=== PATIENT | male | born 1945 | race Caucasian/White ===

== ENCOUNTER 2016-06-03 15:56 | Inpatient (IN) | payer MEDICARE, OTHER ==
--- NOTE | ~2016-06-03 | MR17 ---
[facility] A Service of [facility] RADIOLOGY TEXT RESULTS PATIENT: MITCHELL ORTEGA LOCATION: [facility] : 45 UNIT #: [id number] AGE: [address]: Stephon Toney MD SEX: M ORDER DR: [id number] [facility] [address] [place], [place] [address] [id number] I MR#: [id number] Acc #: [id number] NAME: MITCHELL ORTEGA : 1945 SEX: M STUDY DATE/TIME: 06/07/2016 22:47 UNIT: C5B ROOM: [facility] STUDY DESCRIPTION: MR Brain WWo Contrast Attending Physician: Stephon Toney M.D. Ordering Physician: Nick Harley M.D. Primary Care Physician: Primary Care Physician No MRI CENTER REPORT This report is preliminary unless electronic signature is present. EXAM Brain MR with and without contrast 06/07/[address] 06/06/2016. HISTORY Dizziness after closed head injury 3 days ago with persistent head and neck pain and visual disturbance. PROCEDURE Routine brain MR with and without contrast. FINDINGS The study is motion degraded which limits sensitivity and limits ability to evaluate the suspected left anterior cranial fossa/nasal encephalocele. There is no MR evidence of acute ischemia or other restricted diffusion. There is no intracranial hemorrhage, hydrocephalus or extraaxial fluid collection. The suspicious area in the left anterior cranial fossa floor and anterior ethmoids is redemonstrated and again a meningocele or meningoencephalocele is suspected but poorly assessed on this motion degraded exam. There are moderate nonspecific white matter changes fairly symmetric but again no acute ischemia, mass or abnormal enhancement. IMPRESSION Moderate nonspecific white matter changes without acute ischemia, hemorrhage or mass. As on the CT, there is a possible anterior ethmoid meningocele or encephalocele but poorly assessed on this motion degraded exam. The exam otherwise shows no acute abnormality. [facility] A Service of [facility] RADIOLOGY TEXT RESULTS PATIENT: MITCHELL ORTEGA LOCATION: [facility] : 45 UNIT #: [id number] AGE: [address]: Stephon Toney MD SEX: M ORDER DR: Dictated by... Mitchell Hitchcock M.D. THIS IS AN ELECTRONICALLY VERIFIED REPORT Mitchell Hitchcock M.D. at 06/14/2016 10:43 AM VIRIDIANA/sukhdeep TD: 06/08/2016 09:13 JOB #: [id number] MRI CENTER REPORT Page 1 of 1 COPY
--- NOTE | ~2016-06-03 | EKG ---
PATIENT: SAEID ORTEGA UNIT #: [id number] Ventricular Rate: 109 BPM Atrial Rate: 293 BPM QRS Duration: 86 ms Q-T Interval: 344 ms QTC Calculation(Bezet): 463 ms Calculated R Florence: 44 degrees Calculated T Florence: 39 degrees Diagnosis Line: Atrial flutter with variable A-V block Diagnosis Line: Abnormal ECG Diagnosis Line: When compared with ECG of 12-MAR-2016 08:04, Diagnosis Line: Atrial flutter has replaced Sinus rhythm Diagnosis Line: Vent. rate has increased BY 46 BPM Diagnosis Line: Confirmed by GILLES RUCKER MD ([id number]) on Diagnosis Line: 06/04/2016 11:07:17 PM INTERPRETING MD: SKIP
--- NOTE | ~2016-06-03 | MR134 ---
[facility] A Service of [facility] RADIOLOGY TEXT RESULTS PATIENT: MITCHELL ORTEGA LOCATION: [facility] : 45 UNIT #: [id number] AGE: [address]: Stephon Toney MD SEX: M ORDER DR: [id number] [facility] [address] [place], [place] [address] [id number] I MR#: [id number] Acc #: [id number] NAME: MITCHELL ORTEGA : 1945 SEX: M STUDY DATE/TIME: 06/07/2016 22:47 UNIT: B ROOM: [facility] STUDY DESCRIPTION: MR MRA Neck Wo Contrast Attending Physician: Stephon Toney M.D. Ordering Physician: Nick Harley M.D. Primary Care Physician: No Primary Care Physician MRI CENTER REPORT This report is preliminary unless electronic signature is present. EXAM Neck MRA, 06/08/1016. PROCEDURE Axial psbj-ge-rgjxgk neck MRA with three-dimensional reformats. COMPARISON STUDIES None CLINICAL HISTORY Dizziness and syncope with visual disturbance. FINDINGS Both common and internal and external carotid and vertebral arteries are widely patent. The carotid bifurcations appear essentially normal bilaterally with little if any evidence of plaque and certainly 0% stenosis in both internal carotids by NASCET criteria. IMPRESSION Normal neck MRA. Dictated by... Mitchell Hitchcock M.D. THIS IS AN ELECTRONICALLY VERIFIED REPORT Mitchell Hitchcock M.D. at 06/14/2016 10:43 AM TEV/ernestow TD: 06/08/2016 10:02 JOB #: [id number] [facility] A Service of [facility] RADIOLOGY TEXT RESULTS PATIENT: MITCHELL ORTEGA LOCATION: [facility] : 45 UNIT #: [id number] AGE: [address]: Stephon Toney MD SEX: M ORDER DR: MRI CENTER REPORT Page 1 of 1 COPY
--- NOTE | ~2016-06-03 | HP ---
Unit #: [id number] #: [id number] Patient: SAEID ORTEGA [id number] [address] [address] [id number] I MR#: [id number] NAME: SAEID ORTEGA ROOM: 549 Age: 70 Sex: M Admission Date: 06/03/2016 : 1945 Attending Physician: Stephon Toney M.D. Primary Care Physician: No Primary Care Physician HISTORY AND PHYSICAL CHIEF COMPLAINT Palpitations. HISTORY OF PRESENT ILLNESS Mr. Ortega is a 70-year-old white male who has a history of paroxysmal atrial fibrillation, who presented to the emergency room in atrial fibrillation with rapid ventricular rate. Patient states for the last three to four days he has been having periods of feeling weakness, shortness of air, heart racing. He states that yesterday he was working in the garage with a family member, cleaning it out, and he started feeling worse with weakness and shortness of air. His family member told him he did not look well and was afraid that he was going to have a heart attack and told him that he should go to the emergency room. When patient presented to the emergency room, a 12-lead EKG showed atrial fibrillation with a rapid ventricular rate of 109. He was given 20 mg of Cardizem IV and approximately 30 minutes later, he complained of dizziness and a feeling of numbness across his forehead. Monitors showed a bradycardia of 35. He received atropine and patient has converted to normal sinus rhythm. PAST MEDICAL HISTORY 1. Paroxysmal atrial fibrillation. 2. Diabetes, type 2. 3. Gastroesophageal reflux disease. 4. Chronic pain syndrome. 5. Hypertension. 6. Depression, anxiety. 7. Peripheral neuropathy. 8. Degenerative joint disease. PAST SURGICAL HISTORY 1. Appendectomy. 2. Tonsillectomy. HOME MEDICATIONS 1. Neurontin 300 mg three times daily. 2. Lortab 5/325 one tab at bedtime. 3. Cardizem 240 mg daily. 4. Coreg 3.125 mg twice daily. 5. Glucophage. 6. Glucotrol, dose is currently unavailable for the Glucotrol and Glucophage. 7. Zyrtec 10 mg daily p.r.n. I do not think the list that I have is complete. Looking at a recent Unit #: [id number] #: [id number] Patient: SAEID ORTEGA discharge summary as of March 12, 2016, he was on medications like Risperdal, omeprazole, lidocaine cream, hydroxyzine, fluoxetine, Flexeril, Zyrtec and none of these medications are on his current home med rec. ALLERGIES No known allergies. FAMILY HISTORY Coronary artery disease with myocardial infarction in his mother in her 60s, mother still living in her 90s. SOCIAL HISTORY The patient states he lives in a duplex and that his mother lives in the apartment on the other side of him and he helps to provide for her as well as he has a brother that is there. Patient is a life-long nonsmoker. No illicit drugs. No alcohol. REVIEW OF SYSTEMS Negative fevers. Negative chills. Positive for cough and exacerbation of hay fever. No dyspnea on exertion. No chest pain. No chest pressure. Positive for palpitations, shortness of air, and weakness with feelings of heart racing. No constipation. No diarrhea. No bright red bleeding per rectum. No melena. No hematuria. No lower extremity edema. No difficulties walking. PHYSICAL EXAMINATION GENERAL: Well-developed, well-nourished, male in no acute distress. VITAL SIGNS: Temperature 97.5, pulse 56, respirations 16, blood pressure 171/71 this morning. Previous blood pressure 140/67. Height 5 feet 6 inches, weight 77.7 kg. BMI 27. HEENT: Normocephalic and atraumatic. No xanthelasma. Pupils equal, round, and reactive to light. Extraocular movements intact. No jugular venous distention. No elevated CVP. NECK: Supple. No thyromegaly. LUNGS: Clear to auscultation anterior/posteriorly bilaterally. HEART: S1, S2. A 2/6 systolic murmur. No lift. No rubs or gallops. PMI nondisplaced. ABDOMEN: Positive bowel sounds. Soft, nontender, nondistended. EXTREMITIES: No clubbing, cyanosis, or edema. Two plus pulses bilaterally. SKIN: No rash. SPINE: No scoliosis. DIAGNOSTIC STUDIES LABORATORY: Chemistry: Sodium 134, potassium 5.3, chloride 104, CO2 of 21, BUN 26, creatinine 1.5, glucose 266. AST 18, ALT 16. Troponin less than 0.03. TSH 0.73. PT 12.2, INR 1.2, PTT 28.8. Point of care troponin less than 0.05 and less than 0.05. Hemoglobin 13.3, hematocrit 40.1, white blood cell count 9.5, platelet count 255,000. Urinalysis shows glucose 500, urobilinogen 1, negative leukocyte esterase, negative nitrite. IMAGING: Chest x-ray: Lung volumes moderate. No evidence of acute pulmonary disease, pleural effusion, or pneumothorax. No suspicious nodule. ASSESSMENT AND PLAN 1. Atrial fibrillation with rapid ventricular rate treated with IV Unit #: [id number] #: [id number] Patient: SAEID ORTEGA, followed by bradycardia and then conversion to normal sinus rhythm. 2. Hypertension. 3. Diabetes: We will obtain a 2D echocardiogram. I have reviewed records in the computer and I cannot find an echocardiogram. We will adjust his medications and will ask for school secretary to check his medications with his pharmacy. Dictated by Frank MoniquePNadineRNadineN. for Stephon Toney M.D. FAWN/rai TD: 06/04/2016 09:08 JOB #: [id number] HISTORY AND PHYSICAL Page 1 of 1 X X HISTORY AND PHYSICAL
--- NOTE | ~2016-06-03 | CT52 ---
[facility] A Service of [facility] RADIOLOGY TEXT RESULTS PATIENT: SAEID ORTEGA LOCATION: C5B 549-01 : 45 UNIT #: [id number] AGE: [address]: Stephon Toney MD SEX: M ORDER DR: [id number] [facility] [address] [place], [place] [address] [id number] I MR#: [id number] Acc #: [id number] NAME: SAEID ORTEGA : 1945 SEX: M STUDY DATE/TIME: 06/05/2016 11:33 UNIT: C5B ROOM: [facility] STUDY DESCRIPTION: CT Cervical Spine Wo Cont Attending Physician: Stephon Toney M.D. Ordering Physician: Ed Doctor [id number] [facility] Primary Care Physician: Primary Care Physician No MEDICAL IMAGING REPORT This report is preliminary unless electronic signature is present EXAM CT of the C-spine without contrast dated 06/05/2016 COMPARISON None HISTORY The patient fell in the bathroom this morning with subsequent neck pain. TECHNIQUE This CT exam was performed with one or more of the following radiation dose reduction techniques: automatic exposure control, adjustment of mA and/or kV according to patient size, and iterative reconstruction. FINDINGS CT of the cervical spine was obtained without contrast in the axial plane followed by sagittal and coronal reformats. Vertebral body heights and alignment are preserved. Anterior endplate osteophytes are noted at multiple levels. Posterior endplate osteophytes are noted in some of levels particularly at C3-4. No jumped or purged facet joints are seen. C1-2 and C7-T1 demonstrate expected articulation. C2-3: Disc osteophyte complex with bilateral uncinate spurs, particularly in the left causing mild to moderate left neural foraminal narrowing. There is a small central protrusion with borderline-sized canal. C3-4: Disc osteophyte complex which is slightly prominent in the center extending to the right subarticular region. There is moderate canal stenosis, very severe right and beukcvcn-zx-ucxawp left neural foraminal narrowing. Mild bilateral facet changes are seen. C4-5: Disc osteophyte complex with central protrusion. Bilateral uncinate spurs are noted, worse on the left. Mild bilateral facet changes STS. [facility] A Service of [facility] & [facility] RADIOLOGY TEXT RESULTS PATIENT: SAEID ORTEGA LOCATION: C5B 549-01 : [birth year] UNIT #: [id number] AGE: [address]: Stephon Toney MD SEX: M ORDER DR: are seen. No significant neural foraminal narrowing. Abqz-sn-jsfscecv canal stenosis. C5-6: Disc osteophyte complex with bilateral uncinate spurs, worse on the left. Severe left neural foraminal narrowing is seen with bbmc-rr-rcbqhyuf bilateral facet hypertrophic changes. Vnskmaod-df-aninkn canal stenosis is seen. C6-7: Disc osteophyte complex with bilateral uncinate spurs, worse in the left. Htqfdftm-nx-luzlxq canal stenosis is seen with kdbtxzel-ir-tlwnrv left neural foraminal narrowing and mild bilateral facet changes. C7-T1: Disc osteophyte complex with bilateral uncinate spurs. Mild bilateral neural foraminal narrowing is seen with borderline-sized canal. IMPRESSION 1. No acute fracture or subluxation. 2. Degenerative changes are at multiple levels as described above. Dictated by... Mike Romero M.D. THIS IS AN ELECTRONICALLY VERIFIED REPORT Mike Romero M.D. at 06/07/2016 3:00 PM FITZ/ana TD: 06/05/2016 13:19 JOB #: [id number] MEDICAL IMAGING REPORT Page 1 of 1 COPY
--- NOTE | ~2016-06-03 | CT71 ---
[facility] A Service of [facility] RADIOLOGY TEXT RESULTS PATIENT: MITCHELL ORTEGA LOCATION: [facility] : 45 UNIT #: [id number] AGE: [address]: Stephon Toney MD SEX: M ORDER DR: [id number] [address] [address] [id number] I MR#: [id number] Acc #: [id number] NAME: MITCHELL ORTEGA : 1945 SEX: M STUDY DATE/TIME: 06/06/2016 10:11 UNIT: [facility] ROOM: [facility] STUDY DESCRIPTION: CT Head Wo Contrast Attending Physician: Stephon Toney M.D. Ordering Physician: Nick Harley M.D. MEDICAL IMAGING REPORT This report is preliminary unless electronic signature is present EXAM Head CT no contrast, 06/06/2016 COMPARISON 06/05/2016 PROCEDURE Axial unenhanced head CT. This CT exam was performed with one or more of the following radiation dose reduction techniques: automatic exposure control, adjustment of mA and/or kV according to patient size, and iterative reconstruction. CLINICAL HISTORY Head and face heaviness and numbness for 2 hours. FINDINGS There is volume loss and nonspecific small vessel type white matter change but no hemorrhage or mass or hydrocephalus or extraaxial fluid collection. The skull base and calvaria are normal and the extracranial soft tissues are normal though changes in the ethmoid region suggest a possible frontal meningocele. IMPRESSION There is no acute intracranial abnormality but there is deformity in the anterior floor of the anterior cranial fossa and anterior ethmoids. 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 Once the acute illness has resolved, outpatient followup evaluation is recommended. Dictated by... Mitchell Hitchcock M.D. [facility] A Service [facility] RADIOLOGY TEXT RESULTS PATIENT: MITCHELL ORTEGA LOCATION: [facility] : 45 UNIT #: [id number] AGE: [address]: Stephon Toney MD SEX: M ORDER DR: THIS IS AN ELECTRONICALLY VERIFIED REPORT Mitchell Hitchcock M.D. at 06/07/2016 9:50 AM VIRIDIANA/ana TD: 06/06/2016 12:32 JOB #: [id number] MEDICAL IMAGING REPORT Page 1 of 1 COPY
--- NOTE | ~2016-06-03 | EKG ---
PATIENT: SAEID ORTEGA UNIT #: [id number] Ventricular Rate: 58 BPM Atrial Rate: 58 BPM P-R Interval: 258 ms QRS Duration: 98 ms Q-T Interval: 460 ms QTC Calculation(Bezet): 451 ms P Emerado: 35 degrees Calculated R Emerado: 18 degrees Calculated T Emerado: 21 degrees Diagnosis Line: Sinus bradycardia with 1st degree A-V block Diagnosis Line: Possible Left atrial enlargement Diagnosis Line: Borderline ECG Diagnosis Line: No previous ECGs available Diagnosis Line: Confirmed by TAMI HARRIS MD ([id number]) on Diagnosis Line: 06/08/2016 4:31:28 PM INTERPRETING MD: STEVEN JULIAN
--- NOTE | ~2016-06-03 | CO ---
Unit #: [id number] #: [id number] Patient: SAEID ORTEGA [id number] [address] [address] [id number] I MR#: [id number] NAME: SAEID ORTEGA ROOM: 549 Age: 70 Sex: M Admission Date: 06/03/2016 : 1945 Attending Physician: Stephon Toney M.D. Primary Care Physician: No Primary Care Physician Consultation Date: 06/04/2016 CONSULTATION REPORT REASON FOR CONSULTATION Possible sleep apnea. HISTORY OF PRESENT ILLNESS A 70-year-old gentleman who actually we saw in 2016 for possible sleep apnea. He agreed to workup at that time and actually was scheduled in our office but canceled appointments twice. When I asked him about that, he said he was going to try to get his sleep study at the [facility] but that never materialized. He now is very interested in proceeding. He says "I want to do anything to help my heart." He does snore. He will wake up gasping from snoring and he has daytime sleepiness. Of note, he was admitted to the hospital for atrial fibrillation with a rapid ventricular rate this admission and also apparently had an admission at the [facility] recently for what sounds like conversion for his atrial fibrillation. PAST MEDICAL HISTORY 1. Atrial fibrillation. 2. Likely obstructive sleep apnea. 3. Diabetes. 4. Gastroesophageal reflux. 5. Hypertension. 6. Anxiety, depression. 7. Peripheral neuropathy. 8. Arthritis. MEDICATIONS 1. Neurontin. 2. Lortab. 3. Cardizem. 4. Coreg. 5. Glucophage. 6. Glucotrol. 7. Zyrtec. ALLERGIES No known medical allergies. SOCIAL HISTORY He does not smoke. He currently does not work. FAMILY HISTORY Coronary artery disease. REVIEW OF SYSTEMS Unit #: [id number] #: [id number] Patient: SAEID ORTEGA Fairly unremarkable other than as above. He denies fevers, chills, weight loss, chest pain, palpitations. He has some rhinitis symptoms from allergies. No abdominal pain, melena, hematochezia, hematemesis, hematuria, dysuria, focal weakness, paraesthesias, leg pain, swelling, etc. Further review of systems negative. PHYSICAL EXAMINATION GENERAL: Reveals a gentleman who is in no acute distress on room air. VITAL SIGNS: He is afebrile. Pulse 56, respiratory rate 16, blood pressure 171/71, 140/67. He is 5 foot 6 inches, weight 171 pounds. BMI is 27. HEENT: Pupils equal, round, and reactive to light. Sclerae anicteric. Head atraumatic. Mallampati class IV oropharynx. He is edentulous. NECK: Supple. No supraclavicular or cervical adenopathy appreciated. CHEST: Fairly clear. No wheeze, stridor, consolidation. CARDIAC: Reveals a regular rhythm. No definite murmur, rub, or gallop. ABDOMEN: Soft, nontender. No hepatomegaly, rebound. EXTREMITIES: Reveal no clubbing, cyanosis, or edema. No calf tenderness. SKIN: Warm and dry without rash or diaphoresis. PSYCHIATRIC: Mood is calm. NEUROLOGIC: No focal weakness, paraesthesias. DIAGNOSTIC STUDIES LABORATORY: He had BUN of 26, creatinine 1.5. INR normal. CBC normal. Rhythm strips appear to be sinus rhythm. IMAGING: Chest x-ray: No acute disease. IMPRESSION Likely obstructive sleep apnea with snoring, daytime sleepiness, multiple exacerbations of his atrial fibrillation. I have discussed the pathophysiology of sleep apnea with Mr. Ortega once again including his health risk and close ties of sleep apnea to atrial fibrillation. He agrees to proceed. We will see him in the office to meet insurance regulations and then proceed with nocturnal polysomnography. I suspect he will have severe sleep apnea and we may be able to perform a split study and get him on treatment as soon as possible. Thank you very much for allowing me to participate in the care of Mr. Ortega. Dictated by... Bharat Gamble M.D. NEYMAR/rai TD: 06/04/2016 10:55 JOB #: [id number] CC: Stephon Toney M.D. Unit #: [id number] #: [id number] Patient: SAEID ORTEGA CONSULTATION REPORT Page 1 of 1 X Bharat Gamble MD X CONSULTATION REPORT
--- NOTE | ~2016-06-03 | DS ---
Unit #: [id number] #: [id number] Patient: SAEID ORTEGA [id number] [address] [address] [id number] I MR#: [id number] NAME: SAEID ORTEGA ROOM: 549 Age: 70 Sex: M Admission Date: 06/03/2016 : 1945 Discharge Date: 06/10/2016 Attending Physician: Stephon Toney M.D. DISCHARGE SUMMARY ADMITTING DIAGNOSES 1. Atrial fibrillation with rapid ventricular rate. 2. Hypertension. 3. Diabetes mellitus. 4. Chronic pain syndrome. 5. Depression and anxiety. 6. Peripheral neuropathy. DISCHARGE DIAGNOSES 1. Atrial fibrillation with rapid ventricular rate, in sinus rhythm at time of discharge. 2. Hypertension. 3. Diabetes mellitus. 4. Chronic pain syndrome. 5. Depression and anxiety. 6. Peripheral neuropathy. 7. Orthostatic hypotension. 8. Multifactorial encephalopathy. 9. Sinus pauses up to 2.6 seconds. 10. Fall. PROCEDURES PERFORMED 1. EKG on June 09, 2016, showed sinus rhythm with first degree AV block. 2. Chest x-ray on June 03, 2016, showed no acute disease. 3. CT of the cervical spine showed no fracture or subluxation. There were degenerative changes at multiple levels. 4. CT of the head without contrast on June 06, 2016, showed no acute intracranial abnormality. There is a deformity in the anterior floor of the anterior cranial fossa and anterior ethmoids. 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 Outpatient followup recommended. 5. MRA of the head on June 07, 2016, showed overall symmetric intracranial vascularity. 6. MRA of the neck on June 08, 2016, showed both common and internal and external carotid and vertebral arteries were widely patent. 7. MRI of the brain without contrast on June 07, 2016, showed moderate nonspecific white matter changes without acute ischemia, hemorrhage, or mass. CONSULTING PHYSICIAN 1. Dr. Harley, Neurology. 2. Dr. Gamble, Pulmonary. HOSPITAL COURSE Unit #: [id number] #: [id number] Patient: SAEID ORTEGA The patient is a 70-year-old male with a history of paroxysmal atrial fibrillation, diabetes mellitus, and hypertension, who presented to the emergency department on June 03, 2016, with complaints of palpitations. The patient was apparently outside working in his garage when he started to feel weakness and shortness of breath. He was brought into the emergency department and was found to be in atrial fibrillation with RVR with a rate of 109. He was treated with 20 mg of IV Cardizem, and then 30 minutes later, he developed dizziness and numbness across his face. Monitor showed that his rate had dropped to 35, and he was treated subsequently with atropine. During the patient's hospital course, he has remained primarily in sinus rhythm with episodes of atrial fibrillation with fairly well-controlled ventricular rate. The patient has had several other pauses during his hospitalization usually in the 2 to 2.5 second range. Diltiazem was discontinued, and Norvasc was initially started. Dr. Gamble was consulted to arrange outpatient sleep study. On June 05, 2016, the patient had a fall in the bathroom. There was dizziness associated, and he hit his head. Orthostatics were obtained, and it was found that the patient dropped from 141 systolic to 93 systolic from lying to seated position. Diltiazem and Spironolactone were discontinued. Cozaar was also discontinued. A CT of the head without contrast was obtained, as well as of the cervical spine, and results are discussed above. Dr. Harley with Neurology was consulted for heaviness of the head and facial numbness. An echocardiogram was also obtained. The report is not currently on the chart. However, Dr. Nicholson has documented that the ejection fraction was normal. Neurology evaluated the patient on June 07, 2016, and ordered the MRI of the brain with and without contrast, as well as MRA of the head and neck. These results are discussed above. The patient was noted to also have problems with sleepiness, and his medications, Flexeril and hydrocodone, were changed to p.r.n. rather than scheduled. Neurology determined that the patient had not had a stroke and had multifactorial encephalopathy. The patient was noted to continue to still have orthostatic decline in blood pressure from the 140s in the lying and seated position to 108 in the standing position. Midodrine 5 mg 3 times daily was added. At the time of discharge, the patient is ambulating in the hallway without complaints. He did not notice any change in dizziness with position change. He did comment some sensation that the room was spinning while seated earlier today. At the time of discharge, his vitals are stable. Blood pressure is 124/46, heart rate 57 and regular, respirations 19 and regular, temperature is 97.6, and O2 saturation is 98% on room air. He has had several surges of his systolic blood pressure up into the 200 range. This will be difficult to manage given his relative orthostatic hypotension. Physical exam is unremarkable at the time of discharge, and the patient is in sinus rhythm at the time of discharge. Repeat orthostatics at the time of discharge show a blood pressure of 138/44 lying, 134/53 sitting, and 119/49 standing. There were no complaints of dizziness with position change. DISCHARGE MEDICATIONS 1. Amiodarone 200 mg daily. 2. Tylenol 650 mg twice daily. 3. Xarelto 20 mg at bedtime. Unit #: [id number] #: [id number] Patient: SAEID ORTEGA 4. Neurontin 400 mg 3 times daily. 5. Duloxetine 30 mg daily. 6. Glucophage 1000 mg twice daily. 7. Zyrtec 10 mg daily. 8. Risperdal 0.5 mg at bedtime. 9. Hydroxyzine 10 mg twice daily. 10. Coreg 3.125 mg twice daily. 11. Artificial Tears O.U. q.i.d. 12. Midodrine 5 mg 3 times daily. 13. Vitamin B-complex 2 tabs daily. 14. Lortab 7.5/325 at 1 tab daily as needed. 15. Protonix 40 mg daily. 16. Flexeril 10 mg 3 times daily p.r.n. 17. Glucotrol 10 mg twice daily. DISPOSITION Mr. Ortega will be discharged to subacute rehab. He has been evaluated by PT and OT, and they advise subacute rehab. FOLLOWUP He will follow up with Dr. Toney in approximately four weeks. He will follow up with Dr. Gamble in one to two weeks to set up an outpatient sleep study. He is also advised to follow up with ENT for further evaluation of the abnormal CT and MRI. Dictated by... Nela Jalloh P.A.C. for Stephon Toney M.D. MARIBELL/brii TD: 06/10/2016 16:04 JOB #: [id number] DISCHARGE SUMMARY Page 1 of 1 X X DISCHARGE SUMMARY
--- NOTE | ~2016-06-03 | A ---
[facility] Nutrition Therapy DATE: 06/05/16 Patient: SAEID ORTEGA Physician: YESICA Address: [address] [place] [address] Room/Bed: [address] [place] [address], Zip: [place] [address] Admit Date: 06/03/16 Date of : [birth year] Height: 5 6 Weight: 181 82.2 NUTRITIONAL ASSESSMENT: REASON: 3 NUTRITIONAL RISK POINTS- EATING POORLY, 4# UNPLANNED WEIGHT LOSS PATIENT ADMITTED FOR A-FIB PMH: A-FIB, DM2, GERD, CHRONIC PAIN SYNDROME, HTN, DEPRESSION, ANXIETY, PERIPHERAL NEUROPATHY Anthropometrics: HT: 66", WT: 181#, BMI: 29.2 Labs: 06/05/46- GLU: 121 ALL OTHER NUTRITIONAL LABS WNL Meds: NEURONTIN, RISPERDAL, CYMBALTA, LORTAB, VITAMIN B COMPLEX, NACL I/O & Bowel function: 1740/102 LBM: 06/03/16 Skin Integrity: INTACT Assessment: PATIENT IS A 70 Y/O MALE ADMITTED FOR A-FIB. PATIENT IS [facility] AND LIVES WITH HIS MOTHER AND NEPHEW. PATIENT STATED A GOOD APPETITE AND THAT HIS UBW IS 175#. ACCORDING TO THE PATIENT HIS WEIGHT 4 WEEKS AGO WAS 171.5# AT HIS DOCTOR'S OFFICE. HE STATED HE OCCASIONALLY DRINKS ENSURE 1-2 TIMES A WEEK AND HE MOSTLY DRINKS DIET MEHNAZ DALIA. PATIENT ALSO STATED THAT HIS BROTHER A FEW DAYS AGO AND HE BELIEVES THAT IS WHY HIS STOMACH IS UPSET. HE HAS NO C/O N/V/D/C. PATIENT'S SKIN IS INTACT. PATIENT'S CURRENT WEIGHT IN [facility] IS 181#. PATIENT IS ON A REGULAR DIET. PATIENT REPORTED HIS HOME GLUCOSE LEVEL WAS 260. Dx: INADEQUATE NUTRIENT INTAKE R/T CURRENT CONDITION ERIK SELF-REPORTED WEIGHT LOSS, 4 NUTRITIONAL RISK POINTS Intervention: REGULAR DIET, MEDS/FLUIDS PER , RD ASSESSMENT Monitoring, Evaluation and Goals: 1. ADEQUATE PO INTAKES >50% OF MEALS 2. PREVENT, CORRECT MICRO/MACRO NUTRIENT DEFICIENCIES MONITOR: WEIGHTS, LABS, PO/FLUID INTAKES Recommendations: 1. CONTINUE REGULAR DIET TOLERATED. MAY CONSIDER CC DIET D/T DX OF DIABETES IF GLUCOSE [facility] Nutrition Therapy DATE: 06/05/16 Patient: SAEID ORTEGA Physician: YESICA Address: [address] [place] [address] Room/Bed: [address] [place] [address], Zip: [place] [address] Admit Date: 06/03/16 Date of : [birth year] Height: 5 6 Weight: 181 82.2 LEVELS ARE ELEVATED. 2. SEND ONE CAN OF VANILLA GLUCERNA QD WITH BREAKFAST FOR ADDED NUTRIENT SUPPORT RD TO F/U PER PROTOCOL AND PRN R/T PATIENT MILDLY COMPROMISED Respectfully, NIKOLAI HOGAN RD, LD Food and Nutritional Services [facility] cc: client file
--- NOTE | ~2016-06-03 | DS ---
Unit #: [id number] #: [id number] Patient: SAEID ORTEGA [id number] [address] [address] [id number] I MR#: [id number] NAME: SAEID ORTEGA ROOM: 549 Age: 70 Sex: M Admission Date: 06/03/2016 : 1945 Discharge Date: Attending Physician: Stephon Toney M.D. Primary Care Physician: No Primary Care Physician DISCHARGE SUMMARY ADDENDUM Mr. Ortega remains stable. Nothing has changed since discharge summary dictated on 06/10/2016. The patient does need subacute rehab and will be discharged to [facility]. Dictated by... Nela Jalloh, P.A.C. for Stephon Toney M.D. CMG/gz TD: 06/11/2016 14:53 JOB #: [id number] DISCHARGE SUMMARY Page 1 of 1 X X DISCHARGE SUMMARY
--- NOTE | ~2016-06-03 | CO ---
Unit #: [id number] #: [id number] Patient: SAEID ORTEGA [id number] [facility] [address] [facility]. [place], [place] [address] [id number] I MR#: [id number] NAME: SAEID ORTEGA ROOM: 549 Age: 70 Sex: M Admission Date: 06/03/2016 : 1945 Attending Physician: Stephon Toney M.D. Primary Care Physician: No Primary Care Physician Consultation Date: 06/07/2016 CONSULTATION REPORT CONSULTING PHYSICIAN Dr. Stephon Toney REASON FOR CONSULT Facial numbness and heaviness. PATIENT IDENTIFICATION This is a 70-year-old, right handed, male evaluated in room 549 at [facility]. SOURCE OF INFORMATION Obtained from the patient and discussion with medical staff and medical record. HISTORY OF PRESENT ILLNESS This is a 70-year-old, right handed, male with a past medical history of paroxysmal atrial fibrillation, diabetes mellitus type 2, GERD, chronic pain, hypertension, depression and anxiety who presented to [facility] with palpitations, was admitted for atrial fibrillation with RVR. Neurology was asked to see for facial numbness. Upon entering the patient's room, the patient was quite lethargic and I actually had to sit in the room for quite some time to get him to wake up. He was sitting up in the chair but was very drowsy, nodding off to sleep as I would talk to him periodically. It took some time to get him to wake up. I was able to help him eat some food and once he began to eat and was stimulated he was able to stay awake but initially was falling asleep repeatedly when I asked him questions. The nurse states that this is new for him and that a couple of days ago he was more alert and oriented. Of note, he did have a fall in the bathroom during his hospital stay two days ago. He hit his head and neck. His CT of the head and neck were negative for any acute abnormalities as a result of the fall. The patient did complain apparently of an episode of numbness of the face. When I asked him about the numbness he states that it still persists but is essentially gone. He states it is around his eyes and nose and is bilateral. He denies any focal facial numbness, any focal arm or leg numbness or weakness, loss of consciousness or loss of awareness, speech or swallowing difficulty, headache or neck pain, fever or chills. However, throughout my interview with the patient, he has difficulty with finding the right words, stringing words along which he states is not his baseline. Nursing states that this is not his baseline either. Throughout my interview, he continued to have difficulty with finding the appropriate words. He has also been complaining of some dizziness. Apparently he fell because everything was spinning. He denies any dizziness to me or vertigo and is not exhibiting any signs of vertigo on exam or ataxia. However, after I Unit #: [id number] #: [id number] Patient: SAEID ORTEGA left the room he did complain of some vertigo to the nurse. He denies any exacerbating or alleviating factors to his symptoms or any other associated problems. He denies any chest pain or shortness of breath and, again, denies any focal stroke-like symptoms. He denies any double vision, blurred vision or loss of vision. He denies any current headache or neck pain since the fall. PAST MEDICAL HISTORY 1. Paroxysmal atrial fibrillation. 2. Diabetes mellitus type 2. 3. GERD. 4. Chronic pain syndrome. 5. Hypertension. 6. Depression. 7. Anxiety. 8. Peripheral neuropathy. 9. DJD. 10. Appendectomy. 11. Tonsillectomy. ALLERGIES No known drug allergies. HOME MEDICATIONS He has two medication reconciliation forms. The initial one is much shorter. [facility] which includes a more extensive list. 1. Neurontin. 2. Diltiazem. 3. Glucophage. 4. Glucotrol. 5. Zyrtec. 6. Vitamin B complex. 7. Duloxetine. 8. Xarelto. 9. Tylenol. 10. Artificial Tears. 11. Flexeril. 12. Cozaar. 13. Amiodarone. 14. Metoprolol succinate. 15. Pantoprazole. 16. Hydroxyzine. 17. Lortab. 18. Risperdal. He certainly has been more lethargic since starting these medications, according to the nursing staff. FAMILY HISTORY Positive for CAD, otherwise noncontributory to his presenting condition. SOCIAL HISTORY The patient lives with his mother and apparently takes care of her. He actually lives in a duplex and his mother lives in the apartment on the other side. He also apparently has a brother that lives in the duplex. He is a lifelong nonsmoker and nondrinker. No illicit drugs. Unit #: [id number] #: [id number] Patient: SAEID ORTEGA REVIEW OF SYSTEMS Difficult to obtain from the patient given his mental status but, otherwise, pertinent positives are as discussed and are otherwise negative. 14 point review of systems was attempted. PHYSICAL EXAMINATION VITAL SIGNS: Temperature 97.9. He has been afebrile. Pulse 68, respirations 18, blood pressure 146/43. Oxygen saturation 96%. Height 5 feet 6 inches, weight 181 pounds. NEUROLOGIC EXAM: Again, the patient is very lethargic, up in a chair but he falls asleep throughout the interview. He becomes more awake as I continue to stimulate him and eventually is able to eat his breakfast that is sitting in front of him though I had to help him initially before he was fully awake. He had no trouble swallowing but initially was very drowsy. He does not appear to have any apraxia. He does have some trouble completing full sentences and having some word finding difficulty even whenever he is more awake towards the end of the interview and exam. He can follow commands although he has some trouble with comprehension initially with two and three step commands. His speech otherwise is clear. He is oriented to person and place. He has some difficulty with the date. CRANIAL NERVE EXAM: He doesn't appear to exhibit a field cut on exam. Eyes are conjugate without ptosis or nystagmus. Extraocular movements are intact. Sensation of strength and scalp is intact. Strength of muscles of facial expression is intact. Hearing is intact to voice and conversation. Tongue is midline, uvula is midline. Palate elevation is normal. Head turning and shoulder shrug was unremarkable. Neck was supple. MOTOR EXAM: Demonstrates normal bulk and tone. Strength appears to be equal, 5- out of 5. SENSORY EXAM: He has some decreased sensation in the lower extremities distally but otherwise nonfocal. COORDINATION: No past-pointing appreciated in the upper extremities. There is normal [id number]-[id number] in the lower extremities. DIAGNOSTIC STUDIES IMAGING: CT of the head without contrast done on 06/05/16 - no acute intracranial hemorrhage, hydrocephalus or midline shift. Minimal hypodensity is noted in the paraventricular white matter, nonspecific. Minimal chronic microvascular ischemic change could not be excluded based on age and statistics. No acute intracranial hemorrhage or obvious fracture. He also had a CT angiogram of the head and neck done on 06/06/2016 after his fall and reports numbness. 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 Outpatient followup evaluation recommended. CT of the cervical spine without contrast on 06/05/16 - no acute fracture or subluxation. Degenerative changes at multiple levels is described in the full body of the report noted. LABORATORY: Sodium 134, potassium 4.4, chloride 101, CO2 26, glucose 97, BUN 25, creatinine 1.4, eGFR 50.6, calcium 8.8, magnesium 2.2. White blood cell count 8.3, hemoglobin 12.5, hematocrit 38.1, platelet Unit #: [id number] #: [id number] Patient: SAEID ORTEGA count 221. Urinalysis shows glucose of 500, otherwise unremarkable. Micro and culture not indicated. TSH 0.73, PT 12.2, INR 1.2, PTT 28.8. Others labs and diagnostic studies are as per chart and have been reviewed. IMPRESSION 1. Facial numbness, nonfocal. 2. Altered mental status and word finding difficulty, rule out central cause. Consider medication effect. 3. Atrial fibrillation. 4. Hypertension. 5. Hyperlipidemia. 6. Sick sinus syndrome. 7. Abnormal head CT. Recommend outpatient evaluation after acute illness is resolved. 8. Fall, complaints of vertigo. No extremity ataxia noted on exam. Unable to perform Heidi-Hallpike at this time. PLAN Will request MRI of the brain without contrast and also MR angiogram of the head and neck to evaluate further. He certainly has change in mental status and concerned given his speech deficits and complaint of vertigo although exam is somewhat limited given his lethargy and inability to cooperate. Patient is up in a chair and I am unable to get him ambulated to the bed at this time. Certainly, given his fall and hitting his head and neck, we need to rule out dissection though less likely given his evaluation and also, given his atrial fibrillation, we need to further evaluate as he has been off Xarelto given his fall. Further recommendations pending workup and further clinical course and resume Xarelto if MRI of the brain is unremarkable and shows no hemorrhage. Please call for any questions or issues. We thank you very much for allowing us to assist in the care of this patient. The case was discussed with Dr. Harley and he agrees to the above and he has seen the patient as well. Dictated by... Shannon Matta A.P.R.N. for Laron Sam/michael TD: 06/08/2016 07:14 JOB #: [id number] Unit #: [id number] #: [id number] Patient: SHANNONSAEID CONSULTATION REPORT Page 1 of 1 X Shannon Matta WOOD [employer]URNER X CONSULTATION REPORT
--- NOTE | ~2016-06-03 | MR122 ---
[facility] A Service [facility] RADIOLOGY TEXT RESULTS PATIENT: MITCHELL ORTEGA LOCATION: [facility] 549-01 : 45 UNIT #: [id number] AGE: [address]: Stephon Toney MD SEX: M ORDER DR: [id number] [facility] [address] [place], [place] [address] [id number] I MR#: [id number] Acc #: [id number] NAME: MITCHELL ORTEGA : 1945 SEX: M STUDY DATE/TIME: 06/07/2016 22:47 UNIT: [facility] ROOM: [facility] STUDY DESCRIPTION: MR MRA Head Wo Contrast Attending Physician: Stephon Toney M.D. Ordering Physician: Nick Harley M.D. Primary Care Physician: No Primary Care Physician MRI CENTER REPORT This report is preliminary unless electronic signature is present. EXAM Head MRA, no contrast, 06/07/2016. PROCEDURE Axial unenhanced head MRA with three-dimensional reformats. COMPARISON None CLINICAL HISTORY Dizziness, fell and struck head with the visual disturbance. FINDINGS Both vertebral arteries, the basilar artery, and both internal carotid arteries are normally patent. There is mild motion degradation which will limit sensitivity for more subtle abnormalities. There is symmetric appearing intracranial vascularity in the anterior, middle, and posterior cerebral distributions. There is a segment of signal dropout in the right posterior cerebral distribution along the lateral margin of the brainstem at its bifurcation, though this is a notorious area for artifactual signal dropout. Both acquisitions suggest stenosis in the left ICA at about the level of the ophthalmic artery origin thought that may also be artifactual. No other intracranial flow-limiting stenosis is suggested and there is no evidence of aneurysm. IMPRESSION Overall symmetric intracranial vascularity. Question stenosis in the left carotid siphon at about the level of the ophthalmic origin though that may be artifactual. A stenosis is suggested in the mid-right [employer] along the lateral margin the brainstem at the bifurcation though this is a notorious area for artifactual signal dropout. No evidence of intracranial aneurysm. [facility] A Service of [facility] RADIOLOGY TEXT RESULTS PATIENT: MITCHELL ORTEGA LOCATION: [facility] 549-01 : [birth year] UNIT #: [id number] AGE: [address]: Stephon Toney MD SEX: M ORDER DR: Dictated by... Mitchell Hitchcock M.D. THIS IS AN ELECTRONICALLY VERIFIED REPORT Mitchell Hitchcock M.D. at 06/14/2016 10:43 AM VIRIDIANA/billy TD: 06/08/2016 09:58 JOB #: [id number] MRI CENTER REPORT Page 1 of 1 COPY
--- NOTE | ~2016-06-03 | EKG ---
PATIENT: SAEID ORTEGA UNIT #: [id number] Ventricular Rate: 71 BPM Atrial Rate: 71 BPM P-R Interval: 250 ms QRS Duration: 98 ms Q-T Interval: 428 ms QTC Calculation(Bezet): 465 ms P [place]: 28 degrees Calculated R [place]: 30 degrees Calculated T [place]: 24 degrees Diagnosis Line: Sinus rhythm with 1st degree A-V block Diagnosis Line: Otherwise normal ECG Diagnosis Line: When compared with ECG of 06-JUN-2016 03:13, Diagnosis Line: No significant change was found Diagnosis Line: Confirmed by RADHA GOMES MD ([id number]) on 06/13/2016 Diagnosis Line: 3:52:54 PM INTERPRETING MD: ELISEO JULIAN
--- NOTE | ~2016-06-03 | CT71 ---
[facility] A Service of [facility] RADIOLOGY TEXT RESULTS PATIENT: SAEID ORTEGA LOCATION: C5B : 45 UNIT #: [id number] AGE: [address]: Stephon Toney MD SEX: M ORDER DR: [id number] [facility] [address] [place], [place] [address] [id number] I MR#: [id number] Acc #: [id number] NAME: SAEID ORTEGA : 1945 SEX: M STUDY DATE/TIME: 06/05/2016 11:30 UNIT: B ROOM: [facility] STUDY DESCRIPTION: CT Head Wo Contrast Attending Physician: Stephon Toney M.D. Ordering Physician: Darin Mason M.D. Primary Care Physician: No Primary Care Physician MEDICAL IMAGING REPORT This report is preliminary unless electronic signature is present EXAM CT head without contrast dated 06/05/2016 COMPARISON None. HISTORY Patient fell in the bathroom and hit head with headache, dizziness, visual disturbance since 06/05/[address] of the head was obtained without contrast in the axial plane as per the protocol. This CT exam was performed with one or more of the following radiation dose reduction techniques: automatic exposure control, adjustment of mA and/or kV according to patient size, and iterative reconstruction. FINDINGS No acute intracranial hemorrhage, space-occupying mass, mass effect, midline shift or hydrocephalus. Minimal hyperdensity is noted in the periventricular white matter. Bones, mastoid air cells and paranasal sinus demonstrate minimal paranasal sinus mucosal thickening. Orbits and the ocular structures do not demonstrate any significant abnormality. IMPRESSION 1. No acute intracranial hemorrhage, hydrocephalus, or midline shift. 2. Minimal hypodensity is noted in the periventricular white matter, nonspecific. Minimal chronic microvascular ischemic change cannot be excluded based on age and statistics. 3. No acute intracranial hemorrhage or obvious fracture. [facility] A Service of [facility] & [facility] RADIOLOGY TEXT RESULTS PATIENT: SAEID ORTEGA LOCATION: C5B : 45 UNIT #: [id number] AGE: [address]: Stephon Toney MD SEX: M ORDER DR: Dictated by... Mike Romero M.D. THIS IS AN ELECTRONICALLY VERIFIED REPORT Mike Romero M.D. at 06/07/2016 3:00 PM CPR/aa TD: 06/05/2016 13:25 JOB #: [id number] MEDICAL IMAGING REPORT Page 1 of 1 COPY
--- NOTE | ~2016-06-03 | EKG ---
PATIENT: SAEID ORTEGA UNIT #: [id number] Ventricular Rate: 43 BPM Atrial Rate: 43 BPM P-R Interval: 242 ms QRS Duration: 86 ms Q-T Interval: 470 ms QTC Calculation(Bezet): 397 ms P [place]: -11 degrees Calculated R [place]: 26 degrees Calculated T [place]: 20 degrees Diagnosis Line: Marked sinus bradycardia with 1st degree A-V block Diagnosis Line: Abnormal ECG Diagnosis Line: When compared with ECG of 03-JUN-2016 14:35, Diagnosis Line: (unconfirmed) Diagnosis Line: Sinus rhythm has replaced Atrial flutter Diagnosis Line: Vent. rate has decreased BY 66 BPM Diagnosis Line: T wave amplitude has increased in Lateral leads Diagnosis Line: QT has shortened Diagnosis Line: Confirmed by GILLES RUCKER MD ([id number]) on Diagnosis Line: 06/04/2016 11:08:53 PM INTERPRETING MD: SKIP
--- NOTE | ~2016-06-03 | CR72 ---
[facility] A Service of [facility] & [facility] RADIOLOGY TEXT RESULTS PATIENT: SAEID ORTEGA LOCATION: [place] [address]- : [birth year] UNIT #: [id number] AGE: [address]: Stephon Toney MD SEX: M ORDER DR: [id number] [facility] [address] [place], [place] [address] [id number] E MR#: [id number] Acc #: [id number] NAME: SAEID ORTEGA : 1945 SEX: M STUDY DATE/TIME: 06/03/2016 15:00 UNIT: [facility] ROOM: STUDY DESCRIPTION: CR Chest Single View Portable Attending Physician: Nicolas Caputo M.D. Ordering Physician: Nicolas Caputo M.D. Primary Care Physician: No Primary Care Physician MEDICAL IMAGING REPORT This report is preliminary unless electronic signature is present EXAM Portable chest x-ray 06/03/2016 HISTORY Palpitations. Short of air, weakness 3-4 days duration. History of diabetes. FINDINGS AP radiograph of chest is presented. Comparison 03/11/2016. Lung volumes moderate. No evidence of acute pulmonary disease, pleural effusion or pneumothorax. No suspicious nodule. Densely calcified right hilar lymph nodes unchanged. The heart is probably upper limits of normal in size to mildly enlarged. Stable. Bony structures unremarkable. Dictated by... Navin Angeles M.D. THIS IS AN ELECTRONICALLY VERIFIED REPORT Navin Angeles M.D. at 06/08/2016 11:00 AM TALAT/alize TD: 06/03/2016 16:43 JOB #: [id number] MEDICAL IMAGING REPORT Page 1 of 1 COPY
--- NOTE | ~2016-06-03 | EKG ---
PATIENT: SAEID ORTEGA UNIT #: [id number] Ventricular Rate: 115 BPM Atrial Rate: 113 BPM QRS Duration: 94 ms Q-T Interval: 400 ms QTC Calculation(Bezet): 553 ms Calculated R [place]: 14 degrees Calculated T [place]: 13 degrees Diagnosis Line: Atrial fibrillation with rapid ventricular Diagnosis Line: response Diagnosis Line: Abnormal ECG Diagnosis Line: When compared with ECG of 03-JUN-2016 16:15, Diagnosis Line: Atrial fibrillation has replaced Sinus rhythm Diagnosis Line: Vent. rate has increased BY 72 BPM Diagnosis Line: T wave amplitude has decreased in Lateral leads Diagnosis Line: Confirmed by TAMI HARRIS MD ([id number]) on Diagnosis Line: 06/08/2016 4:30:52 PM INTERPRETING MD: STEVEN JULIAN
[2016-06-03 15:10] LABS: BASOPHIL# 0.1 X10e3 (0-0.3); BASOPHIL% 0.7 % (0-2.5); EOSINOPHIL# 0.2 X10e3 (0-0.7); EOSINOPHIL% 2.2 % (0.0-7.0); HEMATOCRIT 40.1 % (38.0-50.0); HEMOGLOBIN 13.3 gm/dL (13.0-16.0); LYMPHOCYTE# 1.7 X10e3 (1.0-3.5); LYMPHOCYTE% 18.1 % (17.0-45.0); MEAN CELL VOLUME 88.3 FL (83-96); MEAN CORPUSCULAR HEMOGLOBIN 29.3 PG (28-34); MEAN CORPUSCULAR HGB CONC 33.1 g/dL (30-36); MEAN PLATELET VOLUME 8.1 FL (6.5-11.5); MONOCYTE# 0.7 X10e3 (0-1.0); MONOCYTE% 7.8 % (3.0-12.0); NEUTROPHIL# 6.7 X10e3 (1.5-7.1); NEUTROPHIL% 71.2 % (40-75); PLATELET COUNT 255 X10e3 (140-420); RED BLOOD COUNT 4.55 X10e (3.90-5.60); RED CELL DISTRIBUTION WIDTH 13.9 % (11.0-15.5); WHITE BLOOD COUNT 9.5 X10e3 (4.0-10.5)
[2016-06-03 15:11] LABS: DIFF IND NO
[2016-06-03 15:21] LABS: POC - CKMB <1.0 ng/mL (0.0-7.9); POC - TROPONIN <0.05 ng/mL (<=0.05)
[2016-06-03 15:24] LABS: INR 1.2; PARTIAL THROMBOPLASTIN TIME 28.8 SECONDS (23.5-31.3); PROTHROMBIN TIME (PATIENT) 12.2 SECONDS (9.6-11.5)
[2016-06-03 15:35] LABS: ALBUMIN SERUM 3.9 g/dL (3.5-5.0); BILIRUBIN, DIRECT 0.1 mg/dL (0.0-0.2); BILIRUBIN,INDIRECT 0.8 mg/dL (0.0-0.9); BILIRUBIN,TOTAL 0.9 mg/dL (0.2-2.0); BUN/CREATININE RATIO 17.33; CALCIUM SERUM 9.2 mg/dL (8.4-10.2); CREATININE SERUM 1.5 mg/dL (0.6-1.4); GLOM FILT RATE Estimated 46.5 mL/min (>60); MAGNESIUM 1.8 mg/dL (1.6-3.0); POTASSIUM 5.3 mmol/L (3.5-5.1); PROTEIN TOTAL SERUM 7.8 g/dL (6.0-8.3)
[~2016-06-03 15:56] MED LIST: ANEXSIA 7.5/3251 TA1 PO; APAP325 MG PO; ARTIFICIAL TEAR1 DRP OU; ATARAX PO; BLEPH-105 M1 OU; CARDIZEM CD120 M1 PO; CARDIZEM LA240 MG PO; CLOTRIMAZOLE/BE15 G1 TOP; COREG3.125 MG PO; FLEXERIL10 MG PO; GABAPENTIN400 M2 PO; GLIPIZIDE10 MG PO; IBUPROFEN800 MG PO; LIDOCREAM5 GM TOP; METFORMIN HCL1000 M1 PO; OMEPRAZOLE20 M2 PO; RISPERDAL1 M1 DOB; SARAFEM20 MG PO; THERAPEUTIC-M1 EAC2 PO; XARELTO20 MG PO; ZYRTEC10 M1 PO; [UNRECOGNIZED DRUG - OTHER] EXT
[2016-06-03 17:38] LABS: POC - CKMB <1.0 ng/mL (0.0-7.9); POC - TROPONIN <0.05 ng/mL (<=0.05)
[2016-06-03 19:05] LABS: URINE SOURCE CLEAN CATCH
[2016-06-03 19:12] LABS: URINE APPEARANCE CLEAR; URINE BILIRUBIN NEG (NEG); URINE BLOOD NEG (NEG); URINE COLOR YELLOW; URINE GLUCOSE 500 MG/DL (NEG); URINE KETONE NEG (NEG); URINE LEUKOCYTE ESTERASE NEG (NEG); URINE NITRATE NEG (NEG); URINE PH 7.5 (5-8); URINE PROTEIN NEG (NEG); URINE SPECIFIC GRAVITY 1.014 (1.003-1.035)
[2016-06-03 19:17] LABS: CULTURE INDICATED? NO
[2016-06-03] MEDS ORDERED: NEURONTIN PO (21:33)
[2016-06-03] MEDS ORDERED: LORTAB 5-325 M1 EACH PO (21:36)
[2016-06-03] MEDS ORDERED: DILTIAZEM 24HR240 M2 PO (21:38)
[2016-06-03] MEDS ORDERED: CARVEDILOL3.125 MG PO (21:38)
[2016-06-03] MEDS ORDERED: METFORMIN PO (21:40)
[2016-06-03] MEDS ORDERED: GLUCOTROL PO (21:41)
[2016-06-04] MEDS ORDERED: ZYRTEC10 M1 PO (15:41)
[2016-06-04] MEDS ORDERED: VITAMIN B COMP1 EACH PO (15:42)
[2016-06-04] MEDS ORDERED: XARELTO20 MG PO (15:43)
[2016-06-04] MEDS ORDERED: DULOXETINE HCL30 MG PO (15:43)
[2016-06-04] MEDS ORDERED: TYLENOL325 M1 PO (15:46)
[2016-06-04] MEDS ORDERED: ARTIFICIAL TEAR15 M9 OU (15:48)
[2016-06-04] MEDS ORDERED: FLEXERIL10 MG PO (15:49)
[2016-06-04] MEDS ORDERED: COZAAR25 MG PO (15:49)
[2016-06-04] MEDS ORDERED: AMIODARONE PO (15:50)
[2016-06-04] MEDS ORDERED: METOPROLOL SUC100 MG PO (15:52)
[2016-06-04] MEDS ORDERED: PANTOPRAZOLE SO40 MG PO (15:52)
[2016-06-04] MEDS ORDERED: HYDROXYZINE HCL10 MG PO (15:56)
[2016-06-04] MEDS ORDERED: LORTAB 7.5-3251 EACH PO (15:58)
[2016-06-04] MEDS ORDERED: RISPERDAL2 MG PO (15:59)
[2016-06-05 06:50] LABS: BUN/CREATININE RATIO 15.83; CALCIUM SERUM 8.8 mg/dL (8.4-10.2); CREATININE SERUM 1.2 mg/dL (0.6-1.4); GLOM FILT RATE Estimated 60.9 mL/min (>60)
[2016-06-06 07:34] LABS: BUN/CREATININE RATIO 20.9; CALCIUM SERUM 8.9 mg/dL (8.4-10.2); CREATININE SERUM 1.1 mg/dL (0.6-1.4); GLOM FILT RATE Estimated 67.7 mL/min (>60); MAGNESIUM 2.2 mg/dL (1.6-3.0); POTASSIUM 4.6 mmol/L (3.5-5.1)
[2016-06-06 09:03] LABS: HEMATOCRIT 38.1 % (38.0-50.0); HEMOGLOBIN 12.5 gm/dL (13.0-16.0); MEAN CORPUSCULAR HEMOGLOBIN 29.4 PG (28-34); MEAN CORPUSCULAR HGB CONC 32.7 g/dL (30-36); RED BLOOD COUNT 4.24 X10e (3.90-5.60); RED CELL DISTRIBUTION WIDTH 13.9 % (11.0-15.5); WHITE BLOOD COUNT 8.3 X10e3 (4.0-10.5)
[2016-06-07 07:48] LABS: BUN/CREATININE RATIO 17.85; CALCIUM SERUM 8.8 mg/dL (8.4-10.2); CREATININE SERUM 1.4 mg/dL (0.6-1.4); GLOM FILT RATE Estimated 50.6 mL/min (>60); MAGNESIUM 2.2 mg/dL (1.6-3.0); POTASSIUM 4.4 mmol/L (3.5-5.1)
[2016-06-08 06:40] LABS: BUN/CREATININE RATIO 20.76; CALCIUM SERUM 8.4 mg/dL (8.4-10.2); CREATININE SERUM 1.3 mg/dL (0.6-1.4); GLOM FILT RATE Estimated 55.3 mL/min (>60); MAGNESIUM 2.2 mg/dL (1.6-3.0); POTASSIUM 4.8 mmol/L (3.5-5.1)
[2016-06-09 20:57] LABS: %MB 1.4 % (0.0-4.0); MB 1.6 ng/ml
== END 2016-06-11 17:04 | DRG 308 ==
LOC: CED 15:56 → CEDOF 17:30 → C5B 21:18
PROVIDERS: Emergency Medicine; Nurse Practitioner Family
PROC: B246YZZ Ultrasonography of Right and Left Heart using Other Contrast (ICD-10-PCS; principal; 2016-06-04)
DX: I48.91 Unspecified atrial fibrillation (principal); I50.33 Acute on chronic diastolic (congestive) heart failure; G93.40 Encephalopathy, unspecified; I11.0 Hypertensive heart disease with heart failure; E11.9 Type 2 diabetes mellitus without complications; K21.9 Gastro-esophageal reflux disease without esophagitis; G89.4 Chronic pain syndrome; F32.9 Major depressive disorder, single episode, unspecified; F41.9 Anxiety disorder, unspecified; G62.9 Polyneuropathy, unspecified; M19.90 Unspecified osteoarthritis, unspecified site; Z79.84 Long term (current) use of oral hypoglycemic drugs; Z79.01 Long term (current) use of anticoagulants; Z82.49 Family history of ischemic heart disease and other diseases of the circulatory system; W01.0XXA Fall on same level from slipping, tripping and stumbling without subsequent striking against object, initial encounter; Y92.231 Patient bathroom in hospital as the place of occurrence of the external cause; I95.1 Orthostatic hypotension; M54.9 Dorsalgia, unspecified; G47.33 Obstructive sleep apnea (adult) (pediatric)
CPT/HCPCS: 70450; 70544; 70547; 70553; 71010; 72125; 80048; 80076; 81003; 82550; 82553; 82947; 83735; 84443; 84484; 85025; 85027; 85610; 85730; 93005; 94760; 94762; 96361; 96374; 96375; 97110; 97116; 97163; 97167; 97530; 97535; 99291; A9577; C8929; G8987-GO; G8988-GO; G8990-GP; G8991-GP; J0461; J1815; Q9957

== ENCOUNTER 2016-07-31 16:09 | Emergency (ER) | payer MEDICARE, OTHER ==
[~2016-07-31 16:09] MED LIST changes: +AMIODARONE PO; +ARTIFICIAL TEAR15 M9 OU; +CARVEDILOL3.125 MG PO; +COZAAR25 MG PO; +DILTIAZEM 24HR240 M2 PO; +DULOXETINE HCL30 MG PO; +GLUCOTROL PO; +HYDROXYZINE HCL10 MG PO; +LORTAB 5-325 M1 EACH PO; +LORTAB 7.5-3251 EACH PO; +METFORMIN PO; +METOPROLOL SUC100 MG PO; +NEURONTIN PO; +PANTOPRAZOLE SO40 MG PO; +RISPERDAL2 MG PO; +TYLENOL325 M1 PO; +VITAMIN B COMP1 EACH PO
== END 2016-07-31 18:52 | disposition left against medical advice (07) ==
LOC: CED 16:09
DX: Z53.21 Procedure and treatment not carried out due to patient leaving prior to being seen by health care provider (principal)

== ENCOUNTER 2016-10-11 15:10 | Observation (INO) | payer MEDICARE, OTHER ==
[~2016-10-11] VITALS: Ht 167.6 cm; Wt 78.6 kg
--- NOTE | ~2016-10-11 | CO ---
Unit #: [id number] #: [id number] Patient: MITCHELL ORTEGA [id number] [facility] [address] [place], [place] [address] [id number] I MR#: [id number] NAME: MITCHELL ORTEGA ROOM: 318 Age: 70 Sex: M Admission Date: 10/11/2016 : 1945 Attending Physician: Vera Roca M.D. Primary Care Physician: Darwin Mckinney M.D. Consultation Date: 10/12/2016 CONSULTATION REPORT REASON FOR CONSULTATION Depression, anxiety, psychosis. HISTORY OF PRESENT ILLNESS Mr. Mitchell Ortega is a 70-year-old male, seen on 10/12/2016 in room 318, bed 1 at [facility]. The patient reported that he lives by himself, recently moved with his mom downstairs, has a care provider. The patient reports that he has been having problem with the hallucination for some time. The patient dressed casually in hospital attire, lying comfortably in bed. The patient denied any suicidal or homicidal ideation. Denied any psychotic symptom. Reported having problem with depression and anxiety for sometime and in the last 6 months hallucination. The patient's vital signs; temperature 97.4, pulse 72, respirations 20, blood pressure 120/56, and oxygen saturation 99%. The patient reported seeing things, visual hallucination. The patient denied any command hallucination or auditory hallucination. The patient reported taking medication for depression for some time and reported that one of the care provider was cheating on the medication taking his pain medications. The patient otherwise was pleasant, cooperative, able to answer questions coherently. The patient was admitted for foot pain. The patient denied any use of any drugs or alcohol. No suicidal or homicidal ideation. PAST PSYCHIATRIC HISTORY Remarkable for history of depression and anxiety, currently on medication. No history of any suicide attempt or any inpatient treatment. MEDICAL HISTORY Remarkable for history of paroxysmal atrial fibrillation, diabetes mellitus type 2, GERD, chronic pain, hypertension, depression, anxiety, peripheral neuropathy, degenerative joint disease. MEDICATIONS Glucophage, Glucotrol, Zyrtec, vitamin B complex, duloxetine, Xarelto, Tylenol, artificial tears, Flexeril, amiodarone, pantoprazole, hydroxyzine, Lortab, and Risperdal. ALLERGIES No known drug allergies. FAMILY HISTORY AND SOCIAL HISTORY The patient reports that he has a good support system from mother before he was living alone. The patient has a care provider. No history of abuse. No history of any substance abuse. Unit #: [id number] #: [id number] Patient: MITCHELL ORTEGA REVIEW OF SYSTEMS Complete review of systems is unremarkable except as mentioned above. MENTAL STATUS EXAMINATION The patient's vital signs; temperature 98.4, pulse 68, respirations 16, blood pressure 136/64, and oxygen saturation 99%. General appearance; the patient dressed casually, lying comfortably in bed. Attention span and concentration, fair. Speech, regular rate and coherent. Oriented in time, place, and person. Mood and affect, sad and dysphoric. Thought process, coherent. Thought content, the patient denied any suicidal or homicidal ideation, but reported visual hallucination, but denied any auditory hallucination. Recent and remote memory, fair to slightly impaired. Language, fair. Fund of knowledge, fair. Insight and judgment, fair to slightly impaired. DIAGNOSES Psychiatric: Major depressive disorder, recurrent, severe, F33.2; psychosis, not otherwise specified, F29.0. Secondary diagnosis: Deferred. Medical diagnosis: Please refer to H and P. Stressors: Psychosocial stressors. ASSESSMENT/PLAN 1. Supportive psychotherapy and psychoeducation provided to the patient. 2. Educated about benefits and side effects of medication and course and prognosis of illness. 3. Advised to continue with the Prozac and Risperdal combination and discontinue other psychotropic medication. We will continue to follow. If needed, consider further adjustment of medication. We will try to keep the medication minimum as possible and follow. Dictated by... Morgan Horne M.D. SENAIT/gisela TD: 10/12/2016 17:27 JOB #: [id number] CONSULTATION REPORT Page 1 of 1 X Morgan Horne MD CONSULTATION REPORT
--- NOTE | ~2016-10-11 | EKG ---
PATIENT: SAEID ORTEGA UNIT #: [id number] Ventricular Rate: 146 BPM Atrial Rate: 326 BPM QRS Duration: 78 ms Q-T Interval: 294 ms QTC Calculation(Bezet): 458 ms Calculated R [place]: 26 degrees Calculated T [place]: 7 degrees Diagnosis Line: Atrial flutter with variable A-V block Diagnosis Line: Abnormal ECG Diagnosis Line: When compared with ECG of 09-JUN-2016 19:50, Diagnosis Line: Atrial flutter has replaced Sinus rhythm Diagnosis Line: Vent. rate has increased BY 75 BPM Diagnosis Line: Confirmed by LUCIANA HAGEN MD ([id number]) on 10/13/2016 Diagnosis Line: 4:50:43 PM INTERPRETING MD: XIAO JULIAN
--- NOTE | ~2016-10-11 | CR72 ---
[facility] A Service of [facility] & [facility] RADIOLOGY TEXT RESULTS PATIENT: SAEID ORTEGA LOCATION: [facility] 318-01 : [birth year] UNIT #: [id number] AGE: [address]: Jesse José MD SEX: M ORDER DR: [id number] [facility] [address] [place], [place] [address] [id number] I MR#: [id number] #: [id number] NAME: SAEID ORTEGA : 1945 SEX: M STUDY DATE/TIME: 10/11/2016 15:49 [facility] [id number] STUDY DESCRIPTION: CR Chest Single View Portable Attending Physician: Jesse José M.D. Ordering Physician: Korey Hernandez D.O. Primary Care Physician: Darwin Mckinney M.D. MEDICAL IMAGING REPORT This report is preliminary unless electronic signature is present EXAM Frontal chest, 10/11/2016. INDICATION Weakness and falls in a 70-year-old male. Cough. Symptoms began yesterday. TECHNIQUE Frontal chest compared with 06/03/2016. FINDINGS Cardiac silhouette is stable. Vascularity normal. Lung volumes are low and the lungs are clear. Calcified granulomas present. IMPRESSION Negative frontal chest. No significant change. Dictated by... Augie Donis M.D. THIS IS AN ELECTRONICALLY VERIFIED REPORT Augie Donis M.D. at 10/11/2016 10:41 PM ISAURO/billy TD: 10/11/2016 20:11 JOB #: [id number] MEDICAL IMAGING REPORT Page 1 of 1 COPY
--- NOTE | ~2016-10-11 | CO ---
Unit #: [id number] #: [id number] Patient: MITCHELL ORTEGA [id number] [address] [address] [id number] I MR#: [id number] NAME: MITCHELL ORTEGA ROOM: 326 Age: 70 Sex: M Admission Date: 10/11/2016 : 1945 Attending Physician: Vera Roca M.D. Primary Care Physician: Darwin Mckinney M.D. Consultation Date: 10/14/2016 CONSULTATION REPORT REASON FOR CONSULTATION Followup. DISCUSSION Mr. Mitchell Ortega is a 70-year-old male, seen in room 326. The patient dressed casually, lying comfortably in bed. The patient reports medication is helping him. Denied any hallucination. Mood is better. The patient denied any suicidal or homicidal ideation. Denied any psychotic symptom. The patient's vital signs; temperature 98.6, pulse 64, respiratory rate 16, blood pressure 138/58, and oxygen saturation 100%. REVIEW OF SYSTEMS Complete review of systems unremarkable. MENTAL STATUS EXAMINATION General appearance; the patient is moderately obese, dressed casually in hospital attire, lying comfortably in bed. Attention span and concentration, fair. Speech, regular rate and coherent. Oriented in time, place, and person. Mood and affect, sad and dysphoric, but able to smile. Thought process, coherent. Thought content, the patient denied any thoughts of harming self or others. Denied any psychotic symptom. Recent and remote memory, poor. Fund of knowledge, fair. Insight and judgment, fair to slightly impaired. DIAGNOSES Psychiatric: Major depressive disorder, recurrent, severe, F33.2; psychosis, not otherwise specified, F29.0. ASSESSMENT/PLAN 1. Supportive psychotherapy and psychoeducation provided to the patient. 2. Educated about benefits and side effects of medication and course and prognosis of illness. 3. Advised to continue with current combination of Prozac and Risperdal. If needed, consider further adjustment of medication. Please feel free to call if any questions, telephone #[phone]. Dictated by... Morgan Horne M.D. SENAIT/gisela TD: 10/14/2016 20:32 JOB #: [id number] Unit #: [id number] #: [id number] Patient: MITCHELL ORTEGA CONSULTATION REPORT Page 1 of 1 X Morgan Horne MD CONSULTATION REPORT
--- NOTE | ~2016-10-11 | EKG ---
PATIENT: SAEID ORTEGA UNIT #: [id number] Ventricular Rate: 144 BPM Atrial Rate: 141 BPM QRS Duration: 78 ms Q-T Interval: 300 ms QTC Calculation(Bezet): 464 ms Calculated R [place]: 15 degrees Calculated T [place]: -5 degrees Diagnosis Line: Atrial fibrillation with rapid ventricular Diagnosis Line: response Diagnosis Line: Nonspecific ST abnormality Diagnosis Line: Abnormal ECG Diagnosis Line: When compared with ECG of 11-OCT-2016 15:32, Diagnosis Line: (unconfirmed) Diagnosis Line: Atrial fibrillation has replaced Atrial flutter Diagnosis Line: Confirmed by LUCIANA HAGEN MD ([id number]) on 10/13/2016 Diagnosis Line: 4:51:10 PM INTERPRETING MD: XIAO JULIAN
--- NOTE | ~2016-10-11 | EKG ---
PATIENT: SAEID ORTEGA UNIT #: [id number] Ventricular Rate: 60 BPM Atrial Rate: 60 BPM P-R Interval: 240 ms QRS Duration: 90 ms Q-T Interval: 448 ms QTC Calculation(Bezet): 448 ms P [place]: 26 degrees Calculated R [place]: 52 degrees Calculated T [place]: 29 degrees Diagnosis Line: Sinus rhythm with 1st degree A-V block Diagnosis Line: Otherwise normal ECG Diagnosis Line: When compared with ECG of 13-OCT-2016 06:06, Diagnosis Line: No significant change was found Diagnosis Line: Confirmed by LUCIANA HAGEN MD ([id number]) on 10/20/2016 Diagnosis Line: 7:28:21 AM INTERPRETING MD: XIAO JULIAN
--- NOTE | ~2016-10-11 | CO ---
Unit #: [id number] #: [id number] Patient: SAEID ORTEGA [id number] [address] [place], [place] [address] [id number] I MR#: [id number] NAME: SAEID ORETGA ROOM: 318 Age: 70 Sex: M Admission Date: 10/11/2016 : 1945 Attending Physician: Vera Roca M.D. Primary Care Physician: Darwin Mckinney M.D. Consultation Date: 10/12/2016 CONSULTATION REPORT REASON FOR CONSULTATION A-Fib with RVR. HISTORY OF PRESENT ILLNESS The patient is a 70-year-old male, who has been seen by Dr. Toney in the past. He was admitted here in 06/2016 with new onset atrial fibrillation. He was started on oral amiodarone and beta-blockers and discharged on Xarelto for anticoagulation. The patient had some pauses during that admission while on extended-release Cardizem and as long as 2 to 2.5 seconds and this medication was stopped and pauses resolved. The patient has not followed up in the office, but states that he followed up with his PCP and she had taken him off the amiodarone. He reveals that he had been having some weakness and visual changes of black and white, but have resolved since he has stopped the amiodarone. He is currently complaining of some visual hallucinations. He says that he has been having some visual hallucinations. When his niece was standing next to him, she appeared to be a 15 feet fall, however, that is improving but he still sees things running in front of him. He denies any chest pain, but states that he has been short of breath when he has been exerting himself. He denies any peripheral edema and sleeps on 2 pillows at night. There is no documentation of prior ischemic workup such as stress testing or cardiac catheterization. He states that he is still taking the Xarelto at home; however, the amiodarone and carvedilol were not on his medication list. PAST MEDICAL HISTORY Significant for paroxysmal atrial fibrillation, type 2 diabetes, GERD, hypertension, chronic pain syndrome, depression, peripheral neuropathy, and degenerative joint disease. FAMILY HISTORY Noncontributory. SOCIAL HISTORY The patient does not smoke. No alcohol or drug abuse. ALLERGIES No known drug allergies. HOME MEDICATIONS Neurontin 300 mg t.i.d., Lortab 5/325 p.o. at bedtime, Xarelto 20 mg daily, gabapentin 400 mg t.i.d., risperidone 0.5 mg at bedtime, Paxil 20 mg daily, vitamin B 2 tabs daily, glipizide 10 mg b.i.d., Flexeril 10 mg q.8 hours, Cozaar 25 mg daily, Tylenol 650 b.i.d., Fortamet 1000 mg b.i.d., hydroxyzine 10 mg daily. Unit #: [id number] #: [id number] Patient: SAEID ORTEGA DIAGNOSTIC STUDIES EKG on admission shows atrial fibrillation with rapid ventricular rate. IMAGING STUDIES: Chest x-ray was unremarkable. LABORATORY RESULTS: Sodium 141, potassium 4.8, chloride 106, CO2 of 29, BUN 16, creatinine 1.2. Magnesium yesterday was 2.0. LFTs are normal. BNP was 435. TSH in 05/2016 was 0.73. INR is 1.1. Troponins negative x2 in the ER. White blood cell count 8.5, hemoglobin 12, hematocrit 35.8, and platelet count 202. Urinalysis was unremarkable for UTI. REVIEW OF SYSTEMS Complains of wobbly gait and visual hallucinations, visual changes, shortness of breath with exertion, muscle cramping in the upper and lower extremities. No fever, chills, cough, nausea, vomiting, diarrhea, numbness, tingling, headache, chest pain, pressure, tightness, or palpitations. All other review of systems is negative. PHYSICAL EXAMINATION GENERAL: The patient is awake, alert, and oriented. No acute distress. Color is pink. SKIN: Warm and dry. VITAL SIGNS: Afebrile. Heart rate 72, in sinus rhythm, blood pressure 120/56. HEENT: Pupils are equal, round, and reactive. Normal carotid upstrokes. No auscultated bruit. Negative JVD. Lying supine. Negative hepatojugular reflux. NEUROLOGICAL: No focal, motor or sensory deficits. CHEST: Respirations are regular and unlabored at rest. Bilateral breath sounds have good air entry throughout all lung [place]. No crackles, rubs or wheezes are heard. HEART: S1 and S2. Regular rate and rhythm. No murmurs, rubs, or gallops. ABDOMEN: Soft, nontender, and nondistended. Positive bowel sounds in all 4 quadrants. No ascites noted. EXTREMITIES: Bilateral lower extremities have no pretibial or pitting edema. DP/PT pulses are 2+. Cap refill less than 3 seconds. IMPRESSION 1. Recurrent atrial fibrillation with rapid ventricular rate, currently in sinus rhythm. 2. Visual hallucinations, visual changes and weakness possibly secondary to amiodarone. 3. History of hypertension. 4. VIKI vascular score of 3. PLAN The patient could be having side effects from oral amiodarone. We will discontinue amiodarone drip, hold beta-blockers and put the patient on sotalol 40 mg b.i.d. Monitor QT interval closely. Continue anticoagulation with Xarelto at 20 mg daily. Further recommendations pending hospital course. Dictated by... Julita Toney APRN Unit #: [id number] #: [id number] Patient: SHANNONSAEID PAREDES/gisela TD: 10/13/2016 05:26 JOB #: [id number] CONSULTATION REPORT Page 1 of 1 X X CONSULTATION REPORT
--- NOTE | ~2016-10-11 | CO ---
Unit #: [id number] #: [id number] Patient: MITCHELL ORTEGA [id number] [facility] [address] [place], [place] [address] [id number] I MR#: [id number] NAME: MITCHELL ORTEGA ROOM: 318 Age: 70 Sex: M Admission Date: 10/11/2016 : 1945 Attending Physician: Vera Roca M.D. Primary Care Physician: Darwin Mckinney M.D. Consultation Date: 10/13/2016 CONSULTATION REPORT REASON FOR CONSULTATION Followup. DISCUSSION Mr. Mitchell Ortega is a 70-year-old white male, seen in room 318, bed 1 on 10/13/2016 at [facility]. The patient ate his breakfast, resting comfortably, dressed casually in hospital attire. The patient was in a propped up position. The patient denied any thoughts of harming self or others. Reports mood is better. Denied any hallucination. This morning, vital signs; temperature 98.3, pulse 57, respirations 18, blood pressure 113/73, and oxygen saturation 98%. The patient denied any complaints or any thoughts of harming self or others. REVIEW OF SYSTEMS Complete review of system unremarkable. MENTAL STATUS EXAMINATION General appearance; the patient moderately obese, dressed casually in hospital attire, lying comfortably. Attention span and concentration, fair. Speech, regular rate and coherent. Oriented in time, place, and person. Mood and affect; sad, dysphoric, flat. Thought process, coherent. Thought content, the patient denied any thoughts of harming self or others. Recent and remote memory, fair. Language, intact. Fund of knowledge, fair to slightly impaired. DIAGNOSES 1. Major depressive disorder, recurrent, severe, F33.2. 2. Anxiety disorder, not otherwise specified, F40.01. 3. Psychosis, not otherwise specified, F29.0. ASSESSMENT/PLAN 1. Supportive psychotherapy and psychoeducation provided to the patient. 2. Educated about benefits and side effects of medication and course and prognosis of illness. 3. Advised to continue with Risperdal 0.5 mg at bedtime and Prozac 20 mg daily. If needed, consider further adjustment of medication. Please feel free to call if any questions, telephone #[phone]. Dictated by... Laron Mehta/gisela Unit #: [id number] #: [id number] Patient: MITCHELL ORTEGA TD: 10/13/2016 17:40 JOB #: [id number] CONSULTATION REPORT Page 1 of 1 X Morgan Horne MD X CONSULTATION REPORT
--- NOTE | ~2016-10-11 | HP ---
Unit #: [id number] #: [id number] Patient: SAEID ORTEGA [id number] [address] [address] [id number] MR#: [id number] NAME: SAEID ORTEGA ROOM: 46572 Age: 70 Sex: M Admission Date: 10/11/2016 : 1945 Attending Physician: Jesse José M.D. Primary Care Physician: Darwin Mckinney M.D. HISTORY AND PHYSICAL CHIEF COMPLAINT Foot pain. HISTORY OF PRESENT ILLNESS The patient is a 70-year-old male who presents to [facility] Emergency Department with complaint of pain in his feet. He states that it has been progressive over the past 2-3 days. No exacerbating or alleviating factors. He describes it as severe. PAST MEDICAL HISTORY 1. Paroxysmal A fib. 2. Diabetes type 2. 3. GERD. 4. Chronic pain. 5. Hypertension. 6. Depression. 7. Anxiety. 8. Peripheral neuropathy. 9. Degenerative joint disease. PAST SURGICAL HISTORY 1. Appendectomy. 2. Tonsillectomy. HOME MEDICATIONS Neurontin, Glucophage, Glucotrol, Zyrtec, vitamin B complex, duloxetine, Xarelto, Tylenol, Artificial Tears, Flexeril, amiodarone, pantoprazole, hydroxyzine, Lortab, Risperdal. ALLERGIES No known drug allergies. REVIEW OF SYSTEMS Ten-point review of systems obtained; negative except as per HPI. PHYSICAL EXAM VITAL SIGNS: Temperature 98.3, pulse 110, blood pressure 113/76. GENERAL: 70-year-old male in no acute distress. Appears stated age. HEENT: Pupils equally round. Extraocular movements intact. Mucous membranes dry. NECK: Supple. No JVD, lymphadenopathy. CARDIAC: Irregular rate and rhythm. No murmurs, gallops or rubs. LUNGS: Clear to auscultation bilaterally. ABDOMEN: Nontender, nondistended. Positive bowel sounds. Unit #: [id number] #: [id number] Patient: SAEID ORTEGA EXTREMITIES: No clubbing, cyanosis, edema. Warm and dry. PSYCH: Alert, oriented x3. Affect is appropriate. NEUROLOGICAL: Cranial nerves II-XII intact grossly. Patient moves all extremities equally and with purpose. SKIN: No rashes, bruises or ulcers. MUSCULOSKELETAL: No muscle or joint pain. No muscle or joint swelling. DIAGNOSTIC STUDIES LABORATORIES: Glucose 163; otherwise, chemistries are normal. BNP is 435. IMAGING: None. ASSESSMENT AND PLAN 1. A fib with RVR. The patient is noted to have a heart rate ranging 110 to 160. Has been started on an amiodarone drip by cardiology. 2. Peripheral neuropathy. The patient has a complaint of diffuse pain but mostly in his feet. He states he ran out of some of his medications, including his Neurontin, 3 days ago. This does correspond to when his pain began to get worse. I have restarted the patient's home medications. 3. Prophylaxis. The patient is on Eliquis. 4. Diabetes. Patient has been started on low dose sliding scale insulin. 5. Hypertension. Continue home meds. 1. Dictated by Laron Dawson/gwen TD: 10/11/2016 19:45 JOB #: [id number] HISTORY AND PHYSICAL Page 1 of 1 X Jesse José MD HISTORY AND PHYSICAL
--- NOTE | ~2016-10-11 | DS ---
Unit #: [id number] #: [id number] Patient: SAEID ORTEGA [id number] [address] [address] [id number] I MR#: [id number] NAME: SAEID ORTEGA ROOM: 326 Age: 70 Sex: M Admission Date: 10/11/2016 : 1945 Discharge Date: Attending Physician: Vera Roca M.D. Primary Care Physician: Darwin Mckinney M.D. DISCHARGE SUMMARY DISCHARGE DIAGNOSES 1. Atrial fibrillation with rapid ventricular rate. 2. Peripheral neuropathy. 3. Diabetes mellitus type 2, uncontrolled. 4. Hypertension, uncontrolled. 5. Acute on chronic hallucinations. 6. Allergic to amiodarone with blurry vision and wobbly gait. 7. History of muscle spasms. CONSULTATIONS 1. Dr. Horne. 2. Dr. Mace. PROCEDURES None. DIAGNOSTIC STUDIES LABORATORY: Glucose 172, sodium 132, potassium 4.2, creatinine 1.3. Liver enzymes normal. WBC 8.2, hemoglobin 11.5, platelets 194,000. ALLERGIES Amiodarone and cat dander. DISCHARGE MEDICATIONS 1. Tylenol 650 p.o. b.i.d. 2. Xarelto 20 mg p.o. daily. 3. Neurontin 400 at 3 times daily. 4. Prozac 20 daily. 5. Risperdal 0.5 at bedtime. 6. Hydroxyzine 10 mg p.o. b.i.d. p.r.n. 7. Betapace 40 daily. 8. Hydrochlorothiazide 12.5 p.o. b.i.d. 9. Cozaar 25 daily. 10. Flexeril 10 mg p.o. b.i.d. p.r.n. 11. Glipizide 10 mg p.o. b.i.d. 12. Multivitamin 1 tablet daily. HOSPITAL COURSE A 70-year-old admitted because of leg pain and found to have atrial fibrillation. Atrial fibrillation with rapid ventricular rate. The patient was seen by Cardiology. They started him on Xarelto. Patient was on amiodarone, but he is allergic to it, and it has been discontinued. Also started sotalol. Unit #: [id number] #: [id number] Patient: SAEID ORTEGA Currently, rate well controlled. Continue with Xarelto and follow with family physician. Hallucinations, acute on chronic, not sure whether it is allergy and side effect of (1) . He is on multiple psychiatric medications. Patient was seen by Dr. Horne. He recommended to continue with Prozac and Risperdal. His Flexeril has been decreased in dose. Diabetes mellitus type 2, well controlled. Continue with Glipizide. Hypertension, well controlled. Continue with current Betapace, hydrochlorothiazide, and Cozaar. DISPOSITION Discharge home. FOLLOWUP 1. With Dr. Toney in four to six week's time. Patient will have an EKG in Dr. Toney' office on October 20, 2016. Follow with Dr. Toney for followup. 2. With PCP in one week's time. DISCHARGE INSTRUCTIONS Patient will have home health. it audit manager to help with discharge. Dictated by... Laron Heard/brii TD: 10/14/2016 16:12 JOB #: [id number] DISCHARGE SUMMARY Page 1 of 1 X Vera Roca MD X DISCHARGE SUMMARY
--- NOTE | ~2016-10-11 | EKG ---
PATIENT: SAEID ORTEGA UNIT #: [id number] Ventricular Rate: 55 BPM Atrial Rate: 55 BPM P-R Interval: 258 ms QRS Duration: 100 ms Q-T Interval: 486 ms QTC Calculation(Bezet): 464 ms P Guston: -2 degrees Calculated R Guston: 28 degrees Calculated T Guston: 9 degrees Diagnosis Line: Sinus bradycardia with 1st degree A-V block Diagnosis Line: Otherwise normal ECG Diagnosis Line: When compared with ECG of 11-OCT-2016 16:23, Diagnosis Line: (unconfirmed) Diagnosis Line: Sinus rhythm has replaced Atrial fibrillation Diagnosis Line: Vent. rate has decreased BY 89 BPM Diagnosis Line: ST no longer depressed in Anterior leads Diagnosis Line: T wave amplitude has increased in Anterior leads Diagnosis Line: Confirmed by LUCIANA HAGEN MD ([id number]) on 10/13/2016 Diagnosis Line: 5:00:12 PM INTERPRETING MD: XIAO JULIAN
[2016-10-11 15:54] LABS: BASOPHIL# 0.1 X10e3 (0-0.3); BASOPHIL% 0.7 % (0-2.5); EOSINOPHIL# 0.2 X10e3 (0-0.7); EOSINOPHIL% 2.9 % (0.0-7.0); HEMATOCRIT 38.3 % (38.0-50.0); HEMOGLOBIN 12.6 gm/dL (13.0-16.0); LYMPHOCYTE# 1.7 X10e3 (1.0-3.5); LYMPHOCYTE% 20.6 % (17.0-45.0); MEAN CELL VOLUME 88.1 FL (83-96); MEAN PLATELET VOLUME 7.2 FL (6.5-11.5); MONOCYTE# 0.7 X10e3 (0-1.0); MONOCYTE% 8.3 % (3.0-12.0); NEUTROPHIL# 5.4 X10e3 (1.5-7.1); NEUTROPHIL% 67.5 % (40-75); PLATELET COUNT 242 X10e3 (140-420); RED BLOOD COUNT 4.35 X10e (3.90-5.60); RED CELL DISTRIBUTION WIDTH 13.5 % (11.0-15.5); WHITE BLOOD COUNT 8.1 X10e3 (4.0-10.5)
[2016-10-11 15:57] LABS: DIFF IND NO
[2016-10-11 16:08] LABS: INR 1.1; PARTIAL THROMBOPLASTIN TIME 26.8 SECONDS (23.5-31.3); PROTHROMBIN TIME (PATIENT) 11.4 SECONDS (10.0-11.7)
[2016-10-11 16:14] LABS: POC - TROPONIN <0.05 ng/mL (<=0.05)
[2016-10-11 16:28] LABS: ALBUMIN SERUM 3.7 g/dL (3.5-5.0); BILIRUBIN, DIRECT 0.1 mg/dL (0.0-0.2); BILIRUBIN,TOTAL 0.1 mg/dL (0.2-2.0); BUN/CREATININE RATIO 13.07; CALCIUM SERUM 9.1 mg/dL (8.4-10.2); CREATININE SERUM 1.3 mg/dL (0.6-1.4); GLOM FILT RATE Estimated 55.3 mL/min (>60); PROTEIN TOTAL SERUM 7.7 g/dL (6.0-8.3)
[2016-10-11 18:37] LABS: POC - CKMB <1.0 ng/mL (0.0-7.9); POC - TROPONIN <0.05 ng/mL (<=0.05)
[2016-10-11 18:48] LABS: URINE SOURCE CLEAN CATCH
[2016-10-11 18:52] LABS: URINE APPEARANCE CLEAR; URINE BILIRUBIN NEG (NEG); URINE BLOOD NEG (NEG); URINE COLOR YELLOW; URINE GLUCOSE NEG (NEG); URINE KETONE NEG (NEG); URINE LEUKOCYTE ESTERASE NEG (NEG); URINE NITRATE NEG (NEG); URINE PROTEIN NEG (NEG); URINE SPECIFIC GRAVITY 1.006 (1.003-1.035); URINE UROBILINOGEN 0.2 MG/DL (NEG)
[2016-10-11 19:04] LABS: CULTURE INDICATED? NO
[2016-10-11] MEDS ORDERED: RISPERIDONE0.5 MG PO (19:30)
[2016-10-11] MEDS ORDERED: GABAPENTIN400 M2 PO (19:30)
[2016-10-11] MEDS ORDERED: GLIPIZIDE10 MG PO (19:31)
[2016-10-11] MEDS ORDERED: SARAFEM20 MG PO (19:31)
[2016-10-11] MEDS ORDERED: FLEXERIL10 MG PO (19:31)
[2016-10-11] MEDS ORDERED: B COMPLEX1 EACH PO (19:31)
[2016-10-11] MEDS ORDERED: ACETAMINOPHEN PO (19:32)
[2016-10-11] MEDS ORDERED: FORTAMET1000 MG PO (19:32)
[2016-10-11] MEDS ORDERED: COZAAR25 MG PO (19:32)
[2016-10-11] MEDS ORDERED: HYDROXYZINE HCL10 MG PO (19:33)
[2016-10-12 07:13] LABS: BASOPHIL# 0.1 X10e3 (0-0.3); BASOPHIL% 1.1 % (0-2.5); EOSINOPHIL# 0.5 X10e3 (0-0.7); EOSINOPHIL% 5.4 % (0.0-7.0); HEMATOCRIT 35.8 % (38.0-50.0); LYMPHOCYTE# 2.2 X10e3 (1.0-3.5); LYMPHOCYTE% 26.4 % (17.0-45.0); MEAN CELL VOLUME 88.2 FL (83-96); MEAN CORPUSCULAR HEMOGLOBIN 29.5 PG (28-34); MEAN CORPUSCULAR HGB CONC 33.5 g/dL (30-36); MEAN PLATELET VOLUME 7.4 FL (6.5-11.5); MONOCYTE# 0.8 X10e3 (0-1.0); MONOCYTE% 9.6 % (3.0-12.0); NEUTROPHIL# 4.9 X10e3 (1.5-7.1); NEUTROPHIL% 57.5 % (40-75); PLATELET COUNT 202 X10e3 (140-420); RED BLOOD COUNT 4.06 X10e (3.90-5.60); RED CELL DISTRIBUTION WIDTH 13.2 % (11.0-15.5); WHITE BLOOD COUNT 8.5 X10e3 (4.0-10.5)
[2016-10-12 07:16] LABS: DIFF IND NO
[2016-10-12 07:29] LABS: BUN/CREATININE RATIO 13.33; CALCIUM SERUM 8.7 mg/dL (8.4-10.2); CREATININE SERUM 1.2 mg/dL (0.6-1.4); GLOM FILT RATE Estimated 60.9 mL/min (>60); POTASSIUM 4.8 mmol/L (3.5-5.1)
[2016-10-13 05:35] LABS: HEMATOCRIT 34.4 % (38.0-50.0); HEMOGLOBIN 11.5 gm/dL (13.0-16.0); MEAN CELL VOLUME 88.3 FL (83-96); MEAN CORPUSCULAR HEMOGLOBIN 29.5 PG (28-34); MEAN CORPUSCULAR HGB CONC 33.4 g/dL (30-36); MEAN PLATELET VOLUME 7.7 FL (6.5-11.5); RED BLOOD COUNT 3.9 X10e (3.90-5.60); RED CELL DISTRIBUTION WIDTH 13.4 % (11.0-15.5); WHITE BLOOD COUNT 8.2 X10e3 (4.0-10.5)
[2016-10-13 06:17] LABS: BUN/CREATININE RATIO 13.07; CREATININE SERUM 1.3 mg/dL (0.6-1.4); GLOM FILT RATE Estimated 55.3 mL/min (>60); MAGNESIUM 2.1 mg/dL (1.6-3.0); POTASSIUM 4.2 mmol/L (3.5-5.1)
[2016-10-14] MEDS ORDERED: XARELTO20 MG PO (15:06)
[2016-10-14] MEDS ORDERED: HYDROCHLOROTH12.5 MG PO (15:32)
[2016-10-14] MEDS ORDERED: BETAPACE PO (15:32)
== END 2016-10-14 17:35 | disposition home or self-care (01) ==
LOC: CED 15:10 → CEDOF 18:47 → C3A PCU 18:47 → CEDOF 19:01 → CED 19:01 → C3A PCU 20:22 → CEDOF 20:22 → C3A PCU 20:22
PROVIDERS: Emergency Medicine; Internal Medicine Cardiovascular Disease
DX: I48.91 Unspecified atrial fibrillation (principal); G89.29 Other chronic pain; E11.42 Type 2 diabetes mellitus with diabetic polyneuropathy; E11.65 Type 2 diabetes mellitus with hyperglycemia; I10 Essential (primary) hypertension; Z79.01 Long term (current) use of anticoagulants; Z79.84 Long term (current) use of oral hypoglycemic drugs; Z79.899 Other long term (current) drug therapy
CPT/HCPCS: 36415; 71010; 80048; 80061; 80076; 81003; 82550; 82553; 82947; 83735; 83880; 84484; 85025; 85027; 85610; 85730; 93005; 96374; 96375; 96376; 99285; G0378; J0282; J1815; J2270; J2405